=== PATIENT | male | born 1970 | race Caucasian/White ===

== ENCOUNTER → 2018-12-15 | Outpatient (CLI) | payer BC ==
[2018-12-15 12:28] LABS: BASOPHILS ABSOLUTE AUTO 0.07 K/mm3 (0.00-0.23); BASOPHILS PERCENT AUTO 1 % (0-2); EOSINOPHILS PERCENT AUTO 1 % (0-6); Hematocrit 48.1 % (37.0-53.0); Hemoglobin 16.8 g/dL (13.5-17.5); IMMATURE GRAN ABSOLUTE AUTO 0.16 K/mm3 (0.00-0.10); IMMATURE GRAN PERCENT AUTO 2 % (0-1); LYMPHOCYTES ABSOLUTE AUTO 2.31 K/mm3 (0.84-5.20); LYMPHOCYTES PERCENT AUTO 33 % (21-46); MONOCYTES ABSOLUTE AUTO 0.85 K/mm3 (0.16-1.47); MONOCYTES PERCENT AUTO 12 % (4-13); Mean Corpuscular HGB 32.7 pg (26.0-34.0); Mean Corpuscular HGB Conc 34.9 g/dL (31.5-36.5); Mean Corpuscular Volume 94 fL (80-100); Mean Platelet Volume 9.8 fL (9.1-12.4); NEUTROPHILS ABSOLUTE AUTO 3.58 K/mm3 (1.96-9.15); NEUTROPHILS PERCENT AUTO 51 % (41-73); Platelet Count 250 K/mm3 (150-400); RDW Coefficient Variation 11.9 % (11.7-14.2); RDW Standard Deviation 41.4 fL (35.1-46.3); Red Blood Cell Count 5.13 M/mm3 (4.30-5.90); White Blood Cell Count 7.07 K/mm3 (4.00-11.30)
[2018-12-15 13:53] LABS: International Normalized Ratio 0.98; Prothrombin Time Results 10.4 Sec (9.7-11.5)
[2018-12-15 14:10] LABS: Alanine Aminotransfer (ALT/SGP 48 U/L (12-78); Albumin, Blood 4.2 g/dL (3.4-5.0); Alk Phos 71 U/L (50-136); Anion Gap 8 mmol/L (6-16); Aspartate Aminotrans (AST/SGOT 20 U/L (12-37); Bilirubin, Total 0.5 mg/dL (0.1-1.0); Blood Urea Nitrogen 22 mg/dL (8-24); Bun/Creatinine Ratio 21.8 (12.0-20.0); CO2, Blood 27 mmol/L (21-32); Calcium, Blood 9.2 mg/dL (8.5-10.1); Chloride, Blood 103 mmol/L (98-108); Creatinine, Blood 1.01 mg/dL (0.60-1.20); Glomerular Filtration Rate >60 (60-); Glucose, Blood 95 mg/dL (70-99); Potassium, Blood 3.9 mmol/L (3.5-5.5); Sodium, Blood 138 mmol/L (136-145); Total Protein, Blood 8.2 g/dL (6.4-8.2)
== END | disposition home or self-care (01) ==
LOC: LAB EV 12:19 → LAB SHORT 12:19
PROVIDERS: Physician Assistant
DX: R58 Hemorrhage, not elsewhere classified (principal)
CPT/HCPCS: 80053; 83690; 85025; 85610

== ENCOUNTER → 2023-08-14 | Outpatient (CLI) | payer BC ==
[2023-08-14 09:58] LABS: BASOPHILS ABSOLUTE AUTO 0.06 K/mm3 (0.00-0.23); BASOPHILS PERCENT AUTO 1 % (0-2); EOSINOPHILS ABSOLUTE AUTO 0.09 K/mm3 (0.00-0.68); EOSINOPHILS PERCENT AUTO 1 % (0-6); Hematocrit 50.3 % (37.0-53.0); Hemoglobin 17.8 g/dL (13.5-17.5); IMMATURE GRAN ABSOLUTE AUTO 0.12 K/mm3 (0.00-0.10); IMMATURE GRAN PERCENT AUTO 2 % (0-1); LYMPHOCYTES ABSOLUTE AUTO 2.33 K/mm3 (0.84-5.20); LYMPHOCYTES PERCENT AUTO 34 % (21-46); MONOCYTES ABSOLUTE AUTO 0.84 K/mm3 (0.16-1.47); MONOCYTES PERCENT AUTO 12 % (4-13); Mean Corpuscular HGB 33.8 pg (26.0-34.0); Mean Corpuscular HGB Conc 35.4 g/dL (31.5-36.5); Mean Corpuscular Volume 95 fL (80-100); Mean Platelet Volume 10.2 fL (9.1-12.4); NEUTROPHILS ABSOLUTE AUTO 3.35 K/mm3 (1.96-9.15); NEUTROPHILS PERCENT AUTO 49 % (41-73); Platelet Count 239 K/mm3 (150-400); RDW Coefficient Variation 11.9 % (11.7-14.2); RDW Standard Deviation 41.1 fL (35.1-46.3); Red Blood Cell Count 5.27 M/mm3 (4.30-5.90); White Blood Cell Count 6.79 K/mm3 (4.00-11.30)
[2023-08-14 10:07] LABS: Albumin, Blood 4.4 g/dL (3.4-5.0); Albumin/Globulin Ratio 1.2 (0.8-1.8); Bilirubin, Total 0.7 mg/dL (0.1-1.0); Bun/Creatinine Ratio 15.3 (12.0-20.0); Calcium, Blood 9.5 mg/dL (8.5-10.1); Creatinine, Blood 1.24 mg/dL (0.60-1.20); Globulin, Blood 3.8 g/dL (2.2-4.0); Potassium, Blood 3.5 mmol/L (3.5-5.5); Total Protein, Blood 8.2 g/dL (6.4-8.2)
== END ==
LOC: LAB SHORT 09:51 → LAB 09:51
PROVIDERS: Emergency Medicine
DX: R00.2 Palpitations (principal)
CPT/HCPCS: 80053; 83880; 84484; 85025